=== PATIENT | male | born 1945 | race Caucasian/White ===

== ENCOUNTER 2017-03-27 15:47 | Inpatient (IN) | payer OTHER ==
[2017-03-27] MEDS ORDERED: XYLOCAINE 1 % (PLAIN) ONE (15:55)
[2017-03-27] MEDS ORDERED: STERILE WATER IRRIGATION IR ONE (15:55)
[2017-03-27 15:59] VITALS: BMI 23.4
[2017-03-27 16:42] LABS: BASOPHILS # (AUTO) 0.1 X10^3/uL (0.0-0.1); BASOPHILS % (AUTO) 0.7 % (0.2-1.0); EOSINOPHILS # (AUTO) 0.1 x10^3/uL (0.0-0.2); EOSINOPHILS % (AUTO) 1.1 % (0.9-2.9); HEMATOCRIT 55.7 % (42.0-54.0); HEMOGLOBIN 18.8 g/dL (13.5-18.0); LYMPHOCYTES # (AUTO) 3.3 X10^3/uL (1.3-2.9); LYMPHOCYTES % (AUTO) 28.2 % (21.0-51.0); MEAN CORPUSCULAR HEMOGLOBIN 31.9 pg (27.0-34.0); MEAN CORPUSCULAR HGB CONC 33.6 g/dL (33.0-35.0); MEAN CORPUSCULAR VOLUME 94.8 fL (80.0-100.0); MONOCYTES # (AUTO) 0.8 x10^3/uL (0.3-0.8); NEUTROPHILS # (AUTO) 7.4 x10^3/uL (2.2-4.8); PLATELET COUNT 222 X10^3/uL (150.0-450.0); RED BLOOD COUNT 5.88 X10^6/uL (4.7-6.0); RED CELL DISTRIBUTION WIDTH 13.4 % (11.6-16.5); WHITE BLOOD COUNT 11.8 X10^3/uL (3.6-10.0)
[2017-03-27] MEDS ORDERED: DILAUDID INJ ONE (16:44)
[2017-03-27] MEDS ORDERED: ZOFRAN INJ 4 MG VIAL ONE (16:44)
[2017-03-27] MEDS ORDERED: ZOFRAN INJ 4 MG VIAL IVP ONE (16:44)
[2017-03-27] MEDS ORDERED: DILAUDID INJ IVP ONE (16:45)
--- NOTE | 2017-03-27 16:51 | DR.SOBA ---
HPI - Time Seen Time seen: 16:00 - Primary Care Physician Primary Care Physician: MADELYN LEYVA - HPI Comment HPI Comment: PATIENT WITH 60%PNEUMOTHORAX HERE FOR CHEST TUBE PLACEMENT. PATIENT HAVE INCREASING SOB. NO FEVER. CURRENTLY ON LEVAQUIN FOR RESOLVING PNEUMONIA. - Complaints Chief Complaint Doctors Comments: SOB. Chief Complaint:: MADELYN MONROE, CALLS STATING PT. HAD BEEN SICK FOR ABOUT 1 WEEK AND SHE HAD BEEN TREATING PATIENT AN OUTPATIENT FOR PNEUMONIA AND BRONCHITIS AND HE WASN'T RESPONDING TO TREATMENT. PT. HAD AN OUT-PATIENT CHEST X -RAY DONE TODAY WHICH SHOWED A 60% RIGHT SIDED PNEUMOTHROAX. PT. WAS INSTRUCTED TO COME TO THE ER. UPON ARRIVAL TO ER, PT. IS SHORT OF BREATH UPON REST WITH LABORED RR AND ACCESSORY MUSCLE USE. - Reviewed Nurses Notes Reviewed: Yes - Source History Provided: Patient, Other - Mode of Arrival Mode of Arrival: Ambulatory - Timing Onset of Chief Complaint: 03/20/17 - Duration Duration: Days - Context Onset:: At Rest, With Light Exertion PE Risk Factors:: None History of:: None Currently on:: Neither Prehospital Care:: None - Modifying Factors Worsens:: Nothing - Associated Signs and Symptoms Associated Signs and Symptoms: Cough. denies: Fever, Wheeze, Nasal Congestion - If Chest Pain Quality: Sharp, Stabbing Location: Substernal, Chest Wall - If Cough Cough: Nonproductive PMH - PMH Past Medical History: No Past Surgical History: No Surgical History: No History - Family History History of Family Medical Conditions: No - Social History Does patient currently use any type of tobacco product: Yes Have you used tobacco products in the last 12 months: Yes Type of Tobacco Use: Cigarettes Does any household member use tobacco: No Alcohol Use: None Do you use any recreational Drugs:: No Lives With: Family Lives Where: Home - infectious screening In the last 2 months have you had wt loss of >10#?: NO Have you had fever, night sweats or hemotysis?: No Have you traveled outside the country in the last 6 months?: No Isolation: Standard ROS - Review of Systems Constitutional: No Symptoms Reported Eyes: No Symptoms Reported ENTM: No Symptoms Reported Respiratoy: Non-Productive Cough, Short of Breath, Wheezing Cardiovascular: Chest Pain Gastrointestinal/Abdominal: No Symptoms Reported Genitourinary: No Symptoms Reported Neurological: No Symptoms Reported Musculoskeletal: Muscle Pain Integumentary: No Symptoms Reported Hematologic/Lymphatic: No Symptoms Reported Endocrine: No Symptoms Reported All Other Systems: Reviewed and Negative PE - Vital Signs Vitals: Temperature 98.2 F Pulse Rate [Apical] 82 Pulse Rate 103 Respiratory Rate 35 Blood Pressure [Left Arm] 140/84 Blood Pressure 160/94 O2 Sat by Pulse Oximetry 94 - General Limitations: No Limitations General Appearance: Alert - Head Head Exam: Normal Inspection - Eyes Eye exam: Normal Appearance - ENT ENT Exam: Normal External Ear Exam - Neck Neck Exam: Trachea Midline. negative: Tenderness, Meningismus, Lymphadenopathy - Chest Chest Inspection: Symmetric Chest Wall Rise - Respiratory Respiratory Exam: Normal Lung Sounds Bilat Respiratory Exam: Bilateral Clear to Auscultation - Cardiovascular Cardiovascular Exam: Systolic Murmur - Abdominal Exam Abdominal Exam: Normal Bowel Sounds, Soft. negative: Tenderness - Extremities Extremities Exam: Normal Inspection. negative: Edema - Back Back Exam: Normal Inspection - Neurologic Neurological Exam: Alert, Oriented X3, CN II-XII Intact, Motor Sensory Deficit - Psychiatric Psychiatric Exam: Anxious - Skin Skin Exam: Normal Color MDM - Additional Information Obtained Additional Information Obtained From: Family - Differential Diagnosis Differential Diagnosis: Bronchitis, Pneumothorax, Other (RESPIRATORY DISTRESS,) Course - Treatment Treatment: CHEST TUBE PLACE IN ED BY DR. WEINER THE SURGEON. - Education/Counseling Education/Counseling: Patient, Family, Education Educated On: Treatment, Diagnosis ROR - Labs Reviewed Laboratory Results Reviewed?: Yes Result Diagrams: 03/27/17 16:18 03/27/17 16:18 Laboratory: WBC 11.8 X10^3/uL (3.6-10.0) H 03/27/17 16:18 RBC 5.88 X10^6/uL (4.7-6.0) 03/27/17 16:18 Hgb 18.8 g/dL (13.5-18.0) H 03/27/17 16:18 Hct 55.7 % (42.0-54.0) H 03/27/17 16:18 MCV 94.8 fL (80.0-100.0) 03/27/17 16:18 MCH 31.9 pg (27.0-34.0) 03/27/17 16:18 MCHC 33.6 g/dL (33.0-35.0) 03/27/17 16:18 RDW 13.4 % (11.6-16.5) 03/27/17 16:18 Plt Count 222 X10^3/uL (150.0-450.0) 03/27/17 16:18 MPV 8.0 fL (7.4-11.0) 03/27/17 16:18 Neut % 63.0 % (42.0-75.0) 03/27/17 16:18 Lymph % 28.2 % (21.0-51.0) 03/27/17 16:18 [place] % 7.0 % (0.0-13.0) 03/27/17 16:18 Eos % 1.1 % (0.9-2.9) 03/27/17 16:18 Baso % 0.7 % (0.2-1.0) 03/27/17 16:18 Neut # 7.4 x10^3/uL (2.2-4.8) H 03/27/17 16:18 Lymph # 3.3 X10^3/uL (1.3-2.9) H 03/27/17 16:18 [place] # 0.8 x10^3/uL (0.3-0.8) 03/27/17 16:18 Eos # 0.1 x10^3/uL (0.0-0.2) 03/27/17 16:18 Baso # 0.1 X10^3/uL (0.0-0.1) 03/27/17 16:18 Absolute Nucleated RBC 0.0 /100WBC 03/27/17 16:18 INR Target Range - 03/27/17 16:18 INR 1.08 (0.8-1.3) 03/27/17 16:18 PTT 33.3 SECONDS (22.9-36.5) 03/27/17 16:18 PTT Comment - 03/27/17 16:18 Sodium 138 mmol/L (136-145) 03/27/17 16:18 Corrected Sodium 140 mmol/L (136-145) 03/27/17 16:18 Potassium 4.6 mmol/L (3.5-5.1) 03/27/17 16:18 Chloride 103 mmol/L (98-107) 03/27/17 16:18 Carbon Dioxide 29.3 mmol/L (21-32) 03/27/17 16:18 BUN 19 mg/dL (7-18) H 03/27/17 16:18 Creatinine 1.64 mg/dL (0.70-1.30) H 03/27/17 16:18 Est GFR (MDRD) Af Amer 54 (>60) L 03/27/17 16:18 Est GFR (MDRD) Non-Af 44 (>60) L 03/27/17 16:18 Glucose 181 mg/dL (65-99) H 03/27/17 16:18 Lactic Acid 2.6 mmol/L (0.4-2.0) H 03/27/17 16:18 Calcium 9.2 mg/dL (8.5-10.1) 03/27/17 16:18 Corrected Calcium 9.8 mg/dL (8.5-10.1) 03/27/17 16:18 Total Bilirubin 0.50 mg/dL (0.2-1.0) 03/27/17 16:18 AST 17 Units/L (15-37) 03/27/17 16:18 ALT 17 Units/L (12-78) 03/27/17 16:18 Alkaline Phosphatase 77 Units/L (46-116) 03/27/17 16:18 Creatine Kinase 49 Units/L (39-308) 03/27/17 16:18 CK-MB (CK-2) 3.2 ng/mL (0-4.0) 03/27/17 16:18 CK/CKMB % Calc 6.5 % (<4) 03/27/17 16:18 Troponin I < 0.02 ng/mL (0-1.5) 03/27/17 16:18 Total Protein 8.1 g/dL (6.4-8.2) 03/27/17 16:18 Albumin 3.3 g/dL (3.4-5.0) L 03/27/17 16:18 Globulin 4.8 g/dL (2.5-4.5) H 03/27/17 16:18 Albumin/Globulin Ratio 0.7 Ratio (1.1-2.1) L 03/27/17 16:18 - XRAY XRAY Interpreted by: Radiologist XRAY Findings: REPORT NOTRD AND DISCUSS WITH PATIENT AND FAMILY. - EKG Rhythm: NSR (EKG NOTED.) - Diagnosis Discharge Problem: Respiratory distress Pneumothorax Qualifiers: Pneumothorax type: spontaneous, tension Qualified Code(s): J93.0 - Spontaneous tension pneumothorax Pneumonia Qualifiers: Pneumonia type: due to unspecified organism Laterality: bilateral Lung location : lower lobe of lung Qualified Code(s): J18.9 - Pneumonia, unspecified organism - Discharge Plan Disposition: ADMITTED INPATIENT Condition: Stable - Follow ups/Referrals - Instructions
[2017-03-27 16:57] LABS: LACTIC ACID 2.6 mmol/L (0.4-2.0)
[2017-03-27 16:58] LABS: BLOOD UREA NITROGEN 19 mg/dL (7-18); CALCIUM 9.2 mg/dL (8.5-10.1); CARBON DIOXIDE 29.3 mmol/L (21-32); CHLORIDE 103 mmol/L (98-107); COR NA(FOR HYPERGLY) 140 mmol/L (136-145); CREATININE 1.64 mg/dL (0.70-1.30); SODIUM 138 mmol/L (136-145); TROPONIN I < 0.02 ng/mL (0-1.5); eGFR BLACK RACES 54 (>60); eGFR NON BLACK RACES 44 (>60)
--- NOTE | 2017-03-27 17:01 | RAD ---
HISTORY: 71-year-old male status post chest tube placement Study: Frontal view of the chest. Comparison: Chest radiographs this date Findings: Interval placement large bore right chest thoracostomy catheter with apparent complete resolution of right-sided pneumothorax. The remainder the examination is unchanged. IMPRESSION: 1. Interval placement large-bore right thoracostomy catheter with apparent resolution of pneumothora x. Reported By:
[2017-03-27 17:03] LABS: ALANINE AMINOTRANSFERASE 17 Units/L (12-78); ALBUMIN 3.3 g/dL (3.4-5.0); ALKALINE PHOSPHATASE 77 Units/L (46-116); ASPARTATE AMINO TRANSFERASE 17 Units/L (15-37); CKMB % 6.5 % (<4); COR CA(FOR HYPOALB) 9.8 mg/dL (8.5-10.1); CREATINE KINASE 49 Units/L (39-308); CREATINE KINASE MB 3.2 ng/mL (0-4.0); TOTAL PROTEIN 8.1 g/dL (6.4-8.2)
[2017-03-27] MEDS ORDERED: DILAUDID INJ IVP PRN ×2 (18:04→18:19)
[2017-03-27] MEDS ORDERED: ZOFRAN INJ 4 MG VIAL IVP PRN (18:04)
[2017-03-27] MEDS ORDERED: ATIVAN TAB 1 MG PO SCH (19:00)
--- NOTE | 2017-03-27 19:32 | RAD ---
Is Examination: Portable AP chest History: Chest tube placement Comparison 4:56 p.m., March 27, 2017 Findings: Continued normal heart size with clear left lung. Right chest tube is present with the tip projected over the right hilum. There is increasing airspace disease in the right lower lung. A small right basal pneumothorax may be present, this is equivocal. No mediastinal deviation is noted. Impression: Stable appearance of right chest tube. Possible small right loculated subpulmonic pneumot horax. Increasing airspace disease, infiltrate or edema, right lower lung. Reported By:
--- NOTE | 2017-03-27 19:33 | RAD ---
Examination: Portable AP chest History: 3rd chest tube placement Comparison: 7:24 p.m., March 27, 2017 Findings: Normal heart size with clear left lung. Loculated right subpulmonic [place] pneumothorax. Ri ght chest tube present with the tip projected over the right hilum. Airspace disease in the right low er lung. Impression: As above. Reported By:
--- NOTE | 2017-03-27 19:35 | RAD ---
Examination: Portable AP chest History: 4th chest tube placement, 7:24 p.m., March 27, 2017 Findings: There is no definite change in position of the right chest tube as described. Suspect persi stent loculated right subpulmonic [place] pneumothorax. Persistent airspace disease right lower lung. Heart size normal with clear left lung. Impression: As above. Reported By:
[2017-03-27 21:08] LABS: ABG ALLEN TEST pos; ABG BASE EXCESS -2.3 mmol/L (-2.0-2.0); ABG HCO3 22.5 mmol/L (22-26)
[2017-03-27] MEDS: NS 1000 ML 1,000 ML IV SCH ×2 (21:10→23:15)
[2017-03-27] MEDS ORDERED: AMIDATE INJ 40 MG VIAL ONE (21:16)
[2017-03-27] MEDS ORDERED: VERSED ONE ×2 (21:17→21:18)
[2017-03-27] MEDS ORDERED: DIPRIVAN ONE (21:17)
[2017-03-27] MEDS ORDERED: DIPRIVAN PREMIX 1 GM IV 1,000 MG/100 ML VIAL IV PRN (21:35)
--- NOTE | 2017-03-27 21:44 | DR.UPDATE ---
H&P Update History and Physical Update: History and Physical reviewed and patient examined. Changes noted: NO Yes with the following:agree with H&P. will intubate patient for transport Procedures (ALL) - Intubation Time out performed: Yes Sedative: etomidate, versed Mg given: versed 2mg, etomidate 20mg paralytic: succinylchline (100mg) Laryngoscope: jericho (4) ET tube size: 8 Tube secured depth: 22 Tube secured location: lips Tube placement confirmation: visualized tube passing through cords, equal breath sounds bilaterally, no breath sounds over epigastrium, comfirmation by capnometer Patient tolerated procedure: Yes Intubation complications: none
[2017-03-27] MEDS ORDERED: NORCURON INJ 10 MG VIAL ONE (21:48)
--- NOTE | 2017-03-27 21:53 | RAD ---
Chest, one view Indication: Endotracheal tube placement Comparison: Chest radiograph from earlier today Findings: Tip of the endotracheal tube is well positioned, terminating approximately 3 cm above the c michelle. The heart size is normal. Right-sided chest tube and adjacent basilar opacities appear unchang ed. There is a persistent trace right apical pneumothorax. The left lung is clear. Mild subcutaneous emphysema within the right lateral chest wall again noted. Impression: Satisfactory endotracheal tube placement. Otherwise, stable chest exam. Reported By:
[2017-03-27] MEDS ORDERED: NEO-SYNEPHRINE INJ ONE (22:00)
[2017-03-27 22:21] LABS: ABG BASE EXCESS -2.3 mmol/L (-2.0-2.0); ABG HCO3 25.3 mmol/L (22-26)
[2017-03-27 22:22] LABS: ABG ALLEN TEST POS
[2017-03-27 22:40] LABS: BILIRUBIN,URINE NEGATIVE (NEGATIVE); BLOOD/HEMOGLOBIN,URINE 2+ (NEGATIVE); GLUCOSE, URINE NEGATIVE (NEGATIVE); KETONES,URINE NEGATIVE (NEGATIVE); LEUKOCYTE ESTERASE ,URINE 1+ (NEGATIVE); NITRITES,URINE NEGATIVE (NEGATIVE); PROTEIN,URINE 2+ (NEGATIVE); UROBILINOGEN,URINE NORMAL (NORMAL)
[2017-03-27 22:48] LABS: APPEARANCE,URINE CLEAR (CLEAR); COLOR,URINE YELLOW (YELLOW)
[2017-03-27 22:49] LABS: BACTERIA,URINE NEGATIVE /HPF (NEGATIVE); SQUAMOUS EPITHELIAL CELL,UR RARE /HPF (NEGATIVE)
[2017-03-27] MEDS ORDERED: DIPRIVAN PREMIX 1 GM IV 1,000 MG/100 ML VIAL ONE (23:36)
[2017-03-28 01:29] VITALS: BP 134/72
[2017-03-28] MEDS ORDERED: DIPRIVAN PREMIX 1 GM IV 1,000 MG/100 ML VIAL IV PRN ×2 (04:30→04:33)
[2017-03-28] MEDS ORDERED: LEVAQUIN PREMIX IV 500 MG 500 MG/100 ML BAG IV SCH (09:00)
== END 2017-03-27 23:55 | disposition short-term general hospital (02) | DRG 199 ==
LOC: ER 15:50 → ICU 17:34
PROVIDERS: ADMIT Internal Medicine; ATTEND Internal Medicine
PROC: 0W9900Z Drainage of Right Pleural Cavity with Drainage Device, Open Approach (ICD-10-PCS; principal; 2017-03-27)
PROC: 0BH17EZ Insertion of Endotracheal Airway into Trachea, Via Natural or Artificial Opening (ICD-10-PCS; 2017-03-27)
PROC: 5A1935Z Respiratory Ventilation, Less than 24 Consecutive Hours (ICD-10-PCS; 2017-03-27)
DX: J93.83 Other pneumothorax (principal); R06.02 Shortness of breath; R06.03 Acute respiratory distress; J18.8 Other pneumonia, unspecified organism; R94.31 Abnormal electrocardiogram [ECG] [EKG]; R07.89 Other chest pain
CPT/HCPCS: 36415; 36600; 71045; 71046; 80053; 81001; 82550; 82553; 82803; 83605; 84484; 85025; 85610; 85730; 87040; 93005; 93010; 96365; 96374; 96375; 99284; 99285; A4217; A4222; J1170; J2001; J2250; J2370; J2405; J3490

== ENCOUNTER → 2017-03-27 | Outpatient (CLI) | payer OTHER ==
--- NOTE | 2017-03-27 13:45 | RAD ---
Examination: Chest, PA and lateral views History: Cough and SOB with pneumonia Findings: There is a large right pneumothorax estimated at 60%. Mild tension effect is suggested. Flu id level is present. The heart is not enlarged and the left lung is clear. Impression: Large right hydro- pneumothorax with suspect mild tension effect. Reported By:
== END ==
LOC: RAD 13:21
PROVIDERS: ATTEND Nurse Practitioner Family
DX: J18.9 Pneumonia, unspecified organism (principal); J44.9 Chronic obstructive pulmonary disease, unspecified; J94.8 Other specified pleural conditions
CPT/HCPCS: 71046

== ENCOUNTER 2017-04-10 14:22 | Inpatient (IN) | payer OTHER ==
--- NOTE | 2017-04-10 14:55 | RAD ---
HISTORY: Chest tube placement Study: Chest AP portable Comparison: 03/27/2017 Findings: There is a right-sided PICC line in good position. There is a right-sided chest tube present. There i s a new small bore pigtail chest catheter in the right upper tim thorax. No definite pneumothorax is identified. The heart is within normal limits in size. The raghav are normal. The lungs are free of ac radha infiltrates. No pleural effusions are identified. The bony thorax is unremarkable. IMPRESSION: No definite residual right pneumothorax The lungs clear Reported By:
[2017-04-10 15:18] LABS: BASOPHILS # (AUTO) 0.1 X10^3/uL (0.0-0.1); BASOPHILS % (AUTO) 0.8 % (0.2-1.0); EOSINOPHILS # (AUTO) 0.3 x10^3/uL (0.0-0.2); EOSINOPHILS % (AUTO) 2.9 % (0.9-2.9); HEMATOCRIT 50.1 % (42.0-54.0); LYMPHOCYTES # (AUTO) 3.6 X10^3/uL (1.3-2.9); LYMPHOCYTES % (AUTO) 36.1 % (21.0-51.0); MEAN CORPUSCULAR HEMOGLOBIN 32.1 pg (27.0-34.0); MEAN CORPUSCULAR VOLUME 94.4 fL (80.0-100.0); MEAN PLATELET VOLUME 7.9 fL (7.4-11.0); MONOCYTES # (AUTO) 0.7 x10^3/uL (0.3-0.8); MONOCYTES % (AUTO) 6.9 % (0.0-13.0); NEUTROPHILS # (AUTO) 5.3 x10^3/uL (2.2-4.8); NEUTROPHILS % (AUTO) 53.3 % (42.0-75.0); PLATELET COUNT 220 X10^3/uL (150.0-450.0); RED CELL DISTRIBUTION WIDTH 13.3 % (11.6-16.5)
[2017-04-10 15:19] LABS: ALANINE AMINOTRANSFERASE 32 Units/L (12-78); ALBUMIN 2.9 g/dL (3.4-5.0); ALKALINE PHOSPHATASE 66 Units/L (46-116); ASPARTATE AMINO TRANSFERASE 25 Units/L (15-37); BLOOD UREA NITROGEN 28 mg/dL (7-18); CALCIUM 9.2 mg/dL (8.5-10.1); CARBON DIOXIDE 26.7 mmol/L (21-32); CHLORIDE 104 mmol/L (98-107); COR CA(FOR HYPOALB) 10.1 mg/dL (8.5-10.1); CREATININE 1.14 mg/dL (0.70-1.30); SODIUM 138 mmol/L (136-145); TOTAL PROTEIN 7.7 g/dL (6.4-8.2); eGFR BLACK RACES > 60 (>60); eGFR NON BLACK RACES > 60 (>60)
[2017-04-10 15:24] VITALS: BMI 23.8
--- NOTE | 2017-04-11 05:43 | RAD ---
Examination: Portable AP chest History: Pneumothorax Comparison 04/10/2017 Findings: There is no change in appearance of heart or lungs. Tubes and catheters are stable and unch anged. No definite pneumothorax identified. Impression: No change since 1 day earlier. Reported By:
[2017-04-11 05:45] LABS: BASOPHILS # (AUTO) 0.1 X10^3/uL (0.0-0.1); BASOPHILS % (AUTO) 0.8 % (0.2-1.0); EOSINOPHILS # (AUTO) 0.4 x10^3/uL (0.0-0.2); EOSINOPHILS % (AUTO) 4.6 % (0.9-2.9); HEMATOCRIT 48.7 % (42.0-54.0); HEMOGLOBIN 16.5 g/dL (13.5-18.0); LYMPHOCYTES % (AUTO) 36.7 % (21.0-51.0); MEAN CORPUSCULAR HEMOGLOBIN 31.7 pg (27.0-34.0); MEAN CORPUSCULAR HGB CONC 33.8 g/dL (33.0-35.0); MEAN CORPUSCULAR VOLUME 93.8 fL (80.0-100.0); MEAN PLATELET VOLUME 7.6 fL (7.4-11.0); MONOCYTES # (AUTO) 0.8 x10^3/uL (0.3-0.8); NEUTROPHILS # (AUTO) 3.9 x10^3/uL (2.2-4.8); NEUTROPHILS % (AUTO) 47.9 % (42.0-75.0); PLATELET COUNT 313 X10^3/uL (150.0-450.0); RED BLOOD COUNT 5.19 X10^6/uL (4.7-6.0); RED CELL DISTRIBUTION WIDTH 13.4 % (11.6-16.5); WHITE BLOOD COUNT 8.1 X10^3/uL (3.6-10.0)
[2017-04-11 06:00] LABS: ALANINE AMINOTRANSFERASE 28 Units/L (12-78); ALBUMIN 2.6 g/dL (3.4-5.0); ALKALINE PHOSPHATASE 58 Units/L (46-116); ASPARTATE AMINO TRANSFERASE 18 Units/L (15-37); BLOOD UREA NITROGEN 25 mg/dL (7-18); CALCIUM 9.2 mg/dL (8.5-10.1); CARBON DIOXIDE 29.3 mmol/L (21-32); CHLORIDE 106 mmol/L (98-107); COR CA(FOR HYPOALB) 10.3 mg/dL (8.5-10.1); CREATININE 1.09 mg/dL (0.70-1.30); SODIUM 141 mmol/L (136-145); TOTAL PROTEIN 7.2 g/dL (6.4-8.2); eGFR BLACK RACES > 60 (>60); eGFR NON BLACK RACES > 60 (>60)
--- NOTE | 2017-04-11 09:35 | RAD ---
Examination: Portable AP chest History: Chest tube removal Comparison 04/11/2017 Findings: 1 of the right chest tubes has been removed. The remaining chest tube is unchanged in posit ion. There is no evidence for pneumothorax or other complication. Stable position of PICC. Heart size normal. No pleural fluid seen. Impression: Right chest tube removed with no new abnormality demonstrated. Reported By:
--- NOTE | 2017-04-11 10:12 | PCM.PROG ---
Progress Note - Progress Note for Day of Date: 04/11/17 - Subjective Subjective: pt is comfortable , no SOB . no CP. chest xray showed expanded Rt lung . anterior chest tube was removed without residual pneumothorax.. - Past Medical Family Social History Past Med/Fam/Surg Hx: No changes since H&P Allergies: Allergies No Known Drug Allergies Allergy (Verified 03/27/17 15:48) - Review of Systems ROS: No change since H&P - Vital Signs and I&O's Vital Signs: Temperature 97.8 F Pulse Rate [Left Brachial] 51 Respiratory Rate 13 Blood Pressure [Left Arm] 140/72 Blood Pressure 134/72 O2 Sat by Pulse Oximetry 95 Intake and Output: Intake & Output 04/08/17 04/09/17 04/10/17 04/11/17 11:59 11:59 11:59 11:59 Intake Total 227 Output Total 700 Balance -473 - Physical Exam Oriented: Normal Eyes: Normal Ear: Normal Nose: Normal Throat: Normal Respiratory: Normal, Right, Left ( few scattered rhonchi Rt side) Cardiovascular: Normal Speech Pattern: Clear, Appropriate - Laboratory and Diagnostics Result Diagrams: 04/11/17 05:25 04/11/17 05:25 Labs: Laboratory WBC 8.1 X10^3/uL (3.6-10.0) 04/11/17 05:25 RBC 5.19 X10^6/uL (4.7-6.0) 04/11/17 05:25 Hgb 16.5 g/dL (13.5-18.0) 04/11/17 05:25 Hct 48.7 % (42.0-54.0) 04/11/17 05:25 MCV 93.8 fL (80.0-100.0) 04/11/17 05:25 MCH 31.7 pg (27.0-34.0) 04/11/17 05:25 MCHC 33.8 g/dL (33.0-35.0) 04/11/17 05:25 RDW 13.4 % (11.6-16.5) 04/11/17 05:25 Plt Count 313 X10^3/uL (150.0-450.0) 04/11/17 05:25 MPV 7.6 fL (7.4-11.0) 04/11/17 05:25 Neut % 47.9 % (42.0-75.0) 04/11/17 05:25 Lymph % 36.7 % (21.0-51.0) 04/11/17 05:25 [place] % 10.0 % (0.0-13.0) 04/11/17 05:25 Eos % 4.6 % (0.9-2.9) H 04/11/17 05:25 Baso % 0.8 % (0.2-1.0) 04/11/17 05:25 Neut # 3.9 x10^3/uL (2.2-4.8) 04/11/17 05:25 Lymph # 3.0 X10^3/uL (1.3-2.9) H 04/11/17 05:25 [place] # 0.8 x10^3/uL (0.3-0.8) 04/11/17 05:25 Eos # 0.4 x10^3/uL (0.0-0.2) H 04/11/17 05:25 Baso # 0.1 X10^3/uL (0.0-0.1) 04/11/17 05:25 Absolute Nucleated RBC 0.1 /100WBC 04/11/17 05:25 Sodium 141 mmol/L (136-145) 04/11/17 05:25 Corrected Sodium TNP 04/11/17 05:25 Potassium 4.5 mmol/L (3.5-5.1) 04/11/17 05:25 Chloride 106 mmol/L (98-107) 04/11/17 05:25 Carbon Dioxide 29.3 mmol/L (21-32) 04/11/17 05:25 BUN 25 mg/dL (7-18) H 04/11/17 05:25 Creatinine 1.09 mg/dL (0.70-1.30) 04/11/17 05:25 Est GFR (MDRD) Af Amer > 60 (>60) 04/11/17 05:25 Est GFR (MDRD) Non-Af > 60 (>60) 04/11/17 05:25 Glucose 88 mg/dL (65-99) 04/11/17 05:25 POC Glucose (mg/dL) 103 mg/dL (65-99) H 04/10/17 21:40 Calcium 9.2 mg/dL (8.5-10.1) 04/11/17 05:25 Corrected Calcium 10.3 mg/dL (8.5-10.1) H 04/11/17 05:25 Total Bilirubin 0.30 mg/dL (0.2-1.0) 04/11/17 05:25 AST 18 Units/L (15-37) 04/11/17 05:25 ALT 28 Units/L (12-78) 04/11/17 05:25 Alkaline Phosphatase 58 Units/L (46-116) 04/11/17 05:25 Total Protein 7.2 g/dL (6.4-8.2) 04/11/17 05:25 Albumin 2.6 g/dL (3.4-5.0) L 04/11/17 05:25 Globulin 4.6 g/dL (2.5-4.5) H 04/11/17 05:25 Albumin/Globulin Ratio 0.6 Ratio (1.1-2.1) L 04/11/17 05:25 - Plan (1) Spontaneous pneumothorax Status: Acute Plan: anterior chest tube was removed.. will clamp the other one in am and if on recurrent leak will remove it
[2017-04-11] MEDS ORDERED: ZOFRAN INJ 4 MG VIAL IVP PRN (10:22)
[2017-04-11] MEDS ORDERED: MORPHINE SULFATE INJ 2 MG INJ IVP PRN (10:23)
[2017-04-11] MEDS ORDERED: NS 1/2 1000 ML IV 1,000 ML IV ONE (11:29)
--- NOTE | 2017-04-11 11:29 | DR.H&P ---
H&P - History & Physical for Day of: H&P Date: 04/10/17 - Chief Complaint Chief Complaint: mild sob - Allergies Allergies/Adverse Reactions: Allergies Allergy/AdvReac Type Severity Reaction Status Date / Time No Known Drug Allergies Allergy Verified 03/27/17 15:48 - History of Present Illness History of Present Illness: 71 WM [facility] FROM [facility] FOLLOW COMPLICATED PNEUMOTHORAX WITH PNEUMONIA. PT HAS IMPROVED PNEUMONIA AND BILATERAL CHEST TUBES. PT HAS PMH OF TOBACCO ABUSE NOT OTHER CHRONIC MEDICAL CONDITIONS. PLAN TO CONSULTDR [facility] FOR MANAGEMENT OF CHEST TUBE, ADMISSION LABS, CXR. RESP CARE, PAIN AND NAUSEA CONTROL - Past Medical History Past Medical History: COPD - Past Surgical History Surgical History: Other - Social History Does patient currently use any type of tobacco product: No Have you used tobacco products in the last 12 months: Yes Type of Tobacco Use: Cigarettes How many years tobacco product used: 35 Alcohol Use: None Drug Use: None - Medications Home Medications: No Known Home Medications 0 tab PO DAILY 04/10/17 [History Confirmed 04/10/17] - Review of Systems Constitutional: Weakness Eyes: No Symptoms Reported ENT: No Symptoms Reported Respiratory: Shortness of Breath Cardiovascular: No Symptoms Reported Gastrointestinal: No Symptoms Reported Genitourinary: No Symptoms Reported Musculoskeletal: No Symptoms Reported Skin: No Symptoms Reported Neurological: No Symptoms Reported - Physical Exam Vital Signs: Temperature 97.7 F Pulse Rate [Left Brachial] 61 Pulse Rate 67 Respiratory Rate 19 Blood Pressure [Left Arm] 108/57 Blood Pressure 134/72 O2 Sat by Pulse Oximetry 96 Oriented: Normal Eyes: Normal Ear: Normal Nose: Normal Throat: Normal Respiratory: RLL Diminished, LLL Diminished Cardiovascular: Normal : Normal Auscultation: Bowel Sounds: Normal Tenderness: Normal Skin: Normal Musculoskeletal: Normal Mood Description: Calm Speech Pattern: Appropriate - Assessment/Plan (1) Pneumothorax Qualifiers: Pneumothorax type: spontaneous, tension Qualified Code(s): J93.0 - Spontaneous tension pneumothorax Status: Acute Plan: RESP CARE, CHEST TUBE MANAGEMENT. PAIN CONTROL, CARDIAC AND BP MONITORING. SUPPLEMENTAL O2 (2) COPD (chronic obstructive pulmonary disease) Status: Acute (3) Pneumonia Qualifiers: Pneumonia type: due to unspecified organism Laterality: bilateral Lung location: lower lobe of lung Qualified Code(s): J18.9 - Pneumonia, unspecified organism Status: Acute
[2017-04-11] MEDS: NS 1/2 1000 ML IV 1,000 ML IV SCH (11:41)
[2017-04-11] MEDS: PEPCID 20 MG IV PREMIX* 20 MG/50 ML BAG IV SCH (11:42)
[2017-04-12 05:23] LABS: BASOPHILS # (AUTO) 0.1 X10^3/uL (0.0-0.1); BASOPHILS % (AUTO) 0.7 % (0.2-1.0); EOSINOPHILS # (AUTO) 0.5 x10^3/uL (0.0-0.2); EOSINOPHILS % (AUTO) 4.8 % (0.9-2.9); HEMATOCRIT 47.4 % (42.0-54.0); HEMOGLOBIN 16.1 g/dL (13.5-18.0); LYMPHOCYTES # (AUTO) 3.4 X10^3/uL (1.3-2.9); LYMPHOCYTES % (AUTO) 34.1 % (21.0-51.0); MEAN CORPUSCULAR HEMOGLOBIN 31.8 pg (27.0-34.0); MEAN CORPUSCULAR HGB CONC 33.9 g/dL (33.0-35.0); MEAN CORPUSCULAR VOLUME 93.8 fL (80.0-100.0); MEAN PLATELET VOLUME 7.7 fL (7.4-11.0); MONOCYTES # (AUTO) 0.9 x10^3/uL (0.3-0.8); MONOCYTES % (AUTO) 9.2 % (0.0-13.0); NEUTROPHILS # (AUTO) 5.1 x10^3/uL (2.2-4.8); NEUTROPHILS % (AUTO) 51.2 % (42.0-75.0); PLATELET COUNT 301 X10^3/uL (150.0-450.0); RED BLOOD COUNT 5.05 X10^6/uL (4.7-6.0); RED CELL DISTRIBUTION WIDTH 13.4 % (11.6-16.5); WHITE BLOOD COUNT 10.1 X10^3/uL (3.6-10.0)
[2017-04-12 05:43] LABS: ALANINE AMINOTRANSFERASE 27 Units/L (12-78); ALBUMIN 2.5 g/dL (3.4-5.0); ALKALINE PHOSPHATASE 55 Units/L (46-116); ASPARTATE AMINO TRANSFERASE 17 Units/L (15-37); BLOOD UREA NITROGEN 24 mg/dL (7-18); CALCIUM 8.9 mg/dL (8.5-10.1); CARBON DIOXIDE 24.9 mmol/L (21-32); CHLORIDE 108 mmol/L (98-107); COR CA(FOR HYPOALB) 10.1 mg/dL (8.5-10.1); CREATININE 1.23 mg/dL (0.70-1.30); SODIUM 141 mmol/L (136-145); TOTAL PROTEIN 6.8 g/dL (6.4-8.2); eGFR BLACK RACES > 60 (>60); eGFR NON BLACK RACES > 60 (>60)
--- NOTE | 2017-04-12 08:32 | RAD ---
Examination: Portable AP chest History: Chest tube Comparison reference 04/11/2017 Findings: A single right chest tube remains in stable position. There is no evidence for developing p leural fluid or pneumothorax. There is no change in appearance of heart or lungs since prior study. S table position of PICC. Impression: No change in appearance of the chest since 1 day earlier. Reported By:
[2017-04-12] MEDS: PEPCID 20 MG IV PREMIX* 20 MG/50 ML BAG IV SCH (08:51)
--- NOTE | 2017-04-12 09:56 | PCM.PROG ---
Progress Note - Progress Note for Day of Date: 04/12/17 - Subjective Subjective: pt is comfortable , no SOB . no CP. chest xray showed expanded Rt lung . - Past Medical Family Social History Past Med/Fam/Surg Hx: No changes since H&P Allergies: Allergies No Known Drug Allergies Allergy (Verified 03/27/17 15:48) - Review of Systems ROS: No change since H&P - Vital Signs and I&O's Vital Signs: Temperature 97.7 F Pulse Rate [Left Brachial] 60 Pulse Rate 67 Respiratory Rate 23 Blood Pressure [Left Arm] 112/64 Blood Pressure 134/72 O2 Sat by Pulse Oximetry 94 Intake and Output: Intake & Output 04/09/17 04/10/17 04/11/17 04/12/17 11:59 11:59 11:59 11:59 Intake Total 227 861 Output Total 700 700 Balance -473 161 - Physical Exam Oriented: Normal Eyes: Normal Ear: Normal Nose: Normal Throat: Normal Respiratory: Normal, Right, Left ( few scattered rhonchi Rt side) Cardiovascular: Normal : Normal Auscultation: Bowel Sounds: Normal Tenderness: Normal Skin: Normal Musculoskeletal: Normal Mood Description: Calm Speech Pattern: Clear, Appropriate - Laboratory and Diagnostics Result Diagrams: 04/12/17 05:00 04/12/17 05:00 Labs: Laboratory WBC 10.1 X10^3/uL (3.6-10.0) H 04/12/17 05:00 RBC 5.05 X10^6/uL (4.7-6.0) 04/12/17 05:00 Hgb 16.1 g/dL (13.5-18.0) 04/12/17 05:00 Hct 47.4 % (42.0-54.0) 04/12/17 05:00 MCV 93.8 fL (80.0-100.0) 04/12/17 05:00 MCH 31.8 pg (27.0-34.0) 04/12/17 05:00 MCHC 33.9 g/dL (33.0-35.0) 04/12/17 05:00 RDW 13.4 % (11.6-16.5) 04/12/17 05:00 Plt Count 301 X10^3/uL (150.0-450.0) 04/12/17 05:00 MPV 7.7 fL (7.4-11.0) 04/12/17 05:00 Neut % 51.2 % (42.0-75.0) 04/12/17 05:00 Lymph % 34.1 % (21.0-51.0) 04/12/17 05:00 [place] % 9.2 % (0.0-13.0) 04/12/17 05:00 Eos % 4.8 % (0.9-2.9) H 04/12/17 05:00 Baso % 0.7 % (0.2-1.0) 04/12/17 05:00 Neut # 5.1 x10^3/uL (2.2-4.8) H 04/12/17 05:00 Lymph # 3.4 X10^3/uL (1.3-2.9) H 04/12/17 05:00 [place] # 0.9 x10^3/uL (0.3-0.8) H 04/12/17 05:00 Eos # 0.5 x10^3/uL (0.0-0.2) H 04/12/17 05:00 Baso # 0.1 X10^3/uL (0.0-0.1) 04/12/17 05:00 Absolute Nucleated RBC 0.6 /100WBC 04/12/17 05:00 Sodium 141 mmol/L (136-145) 04/12/17 05:00 Corrected Sodium TNP 04/12/17 05:00 Potassium 4.4 mmol/L (3.5-5.1) 04/12/17 05:00 Chloride 108 mmol/L (98-107) H 04/12/17 05:00 Carbon Dioxide 24.9 mmol/L (21-32) 04/12/17 05:00 BUN 24 mg/dL (7-18) H 04/12/17 05:00 Creatinine 1.23 mg/dL (0.70-1.30) 04/12/17 05:00 Est GFR (MDRD) Af Amer > 60 (>60) 04/12/17 05:00 Est GFR (MDRD) Non-Af > 60 (>60) 04/12/17 05:00 Glucose 89 mg/dL (65-99) 04/12/17 05:00 POC Glucose (mg/dL) 103 mg/dL (65-99) H 04/10/17 21:40 Calcium 8.9 mg/dL (8.5-10.1) 04/12/17 05:00 Corrected Calcium 10.1 mg/dL (8.5-10.1) 04/12/17 05:00 Total Bilirubin 0.20 mg/dL (0.2-1.0) 04/12/17 05:00 AST 17 Units/L (15-37) 04/12/17 05:00 ALT 27 Units/L (12-78) 04/12/17 05:00 Alkaline Phosphatase 55 Units/L (46-116) 04/12/17 05:00 Total Protein 6.8 g/dL (6.4-8.2) 04/12/17 05:00 Albumin 2.5 g/dL (3.4-5.0) L 04/12/17 05:00 Globulin 4.3 g/dL (2.5-4.5) 04/12/17 05:00 Albumin/Globulin Ratio 0.6 Ratio (1.1-2.1) L 04/12/17 05:00 - Plan (1) Spontaneous pneumothorax Status: Acute Plan: will clamp the chest T and repeat chest xray this afternoon. if no recurrent pneumothorax will remove the chest tube ..
[2017-04-12] MEDS: NS 1/2 1000 ML IV 1,000 ML IV SCH (11:16)
[2017-04-12 11:19] LABS: FREE T4 (FREE THYROXINE) 1.04 ng/dL (0.76-1.46); TSH (3RD GENERATION) 1.393 uIU/mL (0.358-3.74)
--- NOTE | 2017-04-12 16:50 | RAD ---
HISTORY: Follow-up chest tube removal Study: Single-view of the chest Comparison: Chest radiographs performed earlier today also on April 12, 2017 Findings: Images demonstrate a moderate sized right basilar pneumothorax extending cranially to near the level of the aortic arch. The pneumothorax measures approximately 6.3 cm across its greatest dimension at t he right lung base. A right-sided chest tube is again demonstrated. A right-sided PICC line is again noted as well. IMPRESSION: Interval development of a moderate-sized right pneumothorax as noted above. Findings were discussed w jeremy Foote at 4:50 p.m. on April 12, 2017. Reported By:
--- NOTE | 2017-04-12 19:27 | RAD ---
HISTORY: Pneumothorax Study: Single-view of the chest Comparison: Chest radiographs performed earlier today also on April 12, 2017 Findings: There has been significant interval improvement of the previously noted right-sided pneumothorax. A t iny right basilar pneumothorax remains. Recommend clinical correlation and continued follow-up is ind icated for further evaluation. The apices are not entirely included. Right-sided chest tube placement is again demonstrated with the tip and side port projecting lateral to the right hilum. A right-side d PICC line is again noted with the tip projecting over the SVC. IMPRESSION: Significant interval improvement of the previously noted right-sided pneumothorax as noted above. Reported By:
[2017-04-13 05:31] LABS: BASOPHILS # (AUTO) 0.1 X10^3/uL (0.0-0.1); BASOPHILS % (AUTO) 0.6 % (0.2-1.0); EOSINOPHILS # (AUTO) 0.5 x10^3/uL (0.0-0.2); EOSINOPHILS % (AUTO) 4.7 % (0.9-2.9); HEMATOCRIT 47.3 % (42.0-54.0); HEMOGLOBIN 15.8 g/dL (13.5-18.0); LYMPHOCYTES # (AUTO) 3.3 X10^3/uL (1.3-2.9); LYMPHOCYTES % (AUTO) 30.1 % (21.0-51.0); MEAN CORPUSCULAR HEMOGLOBIN 31.5 pg (27.0-34.0); MEAN CORPUSCULAR HGB CONC 33.4 g/dL (33.0-35.0); MEAN CORPUSCULAR VOLUME 94.3 fL (80.0-100.0); MEAN PLATELET VOLUME 7.8 fL (7.4-11.0); MONOCYTES # (AUTO) 1.2 x10^3/uL (0.3-0.8); MONOCYTES % (AUTO) 11.3 % (0.0-13.0); NEUTROPHILS # (AUTO) 5.8 x10^3/uL (2.2-4.8); NEUTROPHILS % (AUTO) 53.3 % (42.0-75.0); PLATELET COUNT 279 X10^3/uL (150.0-450.0); RED BLOOD COUNT 5.01 X10^6/uL (4.7-6.0); RED CELL DISTRIBUTION WIDTH 13.1 % (11.6-16.5); WHITE BLOOD COUNT 10.9 X10^3/uL (3.6-10.0)
[2017-04-13 05:47] LABS: ALANINE AMINOTRANSFERASE 21 Units/L (12-78); ALBUMIN 2.4 g/dL (3.4-5.0); ALKALINE PHOSPHATASE 56 Units/L (46-116); ASPARTATE AMINO TRANSFERASE 16 Units/L (15-37); BLOOD UREA NITROGEN 25 mg/dL (7-18); CALCIUM 8.6 mg/dL (8.5-10.1); CARBON DIOXIDE 26.5 mmol/L (21-32); CHLORIDE 106 mmol/L (98-107); CHOL/HDL RATIO 5.9 (0.0-5.0); CHOLESTEROL 170 mg/dL (0-200); COR CA(FOR HYPOALB) 9.9 mg/dL (8.5-10.1); CREATININE 1.24 mg/dL (0.70-1.30); HDL CHOLESTEROL 29 mg/dL (40-60); SODIUM 140 mmol/L (136-145); TOTAL PROTEIN 6.5 g/dL (6.4-8.2); TRIGLYCERIDES 74 mg/dL (0-150); eGFR BLACK RACES > 60 (>60); eGFR NON BLACK RACES > 60 (>60)
[2017-04-13 05:49] LABS: TOTAL PSA 2.15 ng/mL (0.13-4.0)
[2017-04-13] MEDS ORDERED: NS 500 ML IV 500 ML IV ONE (06:04)
[2017-04-13] MEDS ORDERED: NS 100 ML IV 100 ML IV ONE (06:07)
--- NOTE | 2017-04-13 08:06 | CT ---
HISTORY: Pneumothorax Study: CT chest with contrast Comparison: Chest x-ray 04/12/2017 Technique: Axial post-contrast images with coronal and sagittal reformats. Dose reduction procedures were used with mA/kv adjusted for body size. Findings: Examination of the mediastinum demonstrated no evidence for mediastinal masses, enlarged mediastinal adenopathy, or enlarged hilar adenopathy. No pleural effusions are identified. Subcutaneous emphysema is present along the right chest wall. There is a right chest tube in place. No other chest wall or axillary abnormality is identified. Those portions of the upper abdominal organs visualized were with in normal limits. Examination of the lung quiñones demonstrate a moderately large right pneumothorax pr esent most prominently visualized in the lung apex, anteriorly, laterally and in the medial lung base . Abnormal parenchymal density is identified in the right lung apex extending to the pleura. This cou ld represent pleuro parenchymal scarring or neoplasm. PET-CT may be indicated when the pneumothorax h as resolved. Multiple bilateral apical blebs and bulla are identified. No other parenchymal nodules, masses, alveolar infiltrates, areas of consolidation, peribronchial thickening or bronchiectasis is i dentified. IMPRESSION: Residual moderately large pneumothorax more prominent than is visible on plain chest x-ray despite th e presence of a right chest tube. Biapical blebs and bullae Abnormal parenchymal density in the right lung apex extending to the pleura this could represent pleu ro parenchymal scarring or neoplasm. PET-CT may eventually be required for further evaluation. Subcutaneous emphysema right chest wall Reported By:
[2017-04-13] MEDS: PEPCID 20 MG IV PREMIX* 20 MG/50 ML BAG IV SCH (08:23)
[2017-04-13] MEDS ORDERED: STERILE WATER IRRIGATION IR ONE (09:25)
--- NOTE | 2017-04-13 10:34 | RAD ---
History: Follow up chest tube, comparison 04/12/2017 Study: Portable chest Findings: Portable AP erect chest labeled 10:25 a.m. shows the right chest tube to be unchanged in ap pearance. No right pneumothorax is seen. The right PICC is again noted. The left lung is clear Impression: No pneumothorax is identified. The right chest tube remains in place. Reported By:
[2017-04-13] MEDS: LEVAQUIN PREMIX IV 500 MG 500 MG/100 ML BAG IV SCH (11:15)
[2017-04-13] MEDS: NS 1/2 1000 ML IV 1,000 ML IV SCH (11:15)
[2017-04-13] MEDS ORDERED: LIBRIUM PO PRN (18:18)
[2017-04-13] MEDS ORDERED: NS 1/2 1000 ML IV 1,000 ML IV ONE (19:40)
[2017-04-14 05:27] LABS: BASOPHILS # (AUTO) 0.1 X10^3/uL (0.0-0.1); BASOPHILS % (AUTO) 0.6 % (0.2-1.0); EOSINOPHILS # (AUTO) 0.5 x10^3/uL (0.0-0.2); EOSINOPHILS % (AUTO) 4.6 % (0.9-2.9); HEMATOCRIT 47.2 % (42.0-54.0); HEMOGLOBIN 15.7 g/dL (13.5-18.0); LYMPHOCYTES # (AUTO) 2.9 X10^3/uL (1.3-2.9); LYMPHOCYTES % (AUTO) 29.9 % (21.0-51.0); MEAN CORPUSCULAR HEMOGLOBIN 31.3 pg (27.0-34.0); MEAN CORPUSCULAR HGB CONC 33.3 g/dL (33.0-35.0); MEAN CORPUSCULAR VOLUME 94.2 fL (80.0-100.0); MONOCYTES # (AUTO) 1.1 x10^3/uL (0.3-0.8); MONOCYTES % (AUTO) 11.6 % (0.0-13.0); NEUTROPHILS # (AUTO) 5.2 x10^3/uL (2.2-4.8); NEUTROPHILS % (AUTO) 53.3 % (42.0-75.0); PLATELET COUNT 266 X10^3/uL (150.0-450.0); RED BLOOD COUNT 5.01 X10^6/uL (4.7-6.0); RED CELL DISTRIBUTION WIDTH 13.3 % (11.6-16.5); WHITE BLOOD COUNT 9.8 X10^3/uL (3.6-10.0)
--- NOTE | 2017-04-14 05:50 | RAD ---
Examination: AP chest History: Pneumothorax and chest tube Findings: Stable heart size and essentially clear left chest. No change in position of right chest tu be. No pneumothorax seen. Impression: No interval change. Reported By:
[2017-04-14 05:52] LABS: ALANINE AMINOTRANSFERASE 19 Units/L (12-78); ALBUMIN 2.4 g/dL (3.4-5.0); ALKALINE PHOSPHATASE 58 Units/L (46-116); ASPARTATE AMINO TRANSFERASE 15 Units/L (15-37); BLOOD UREA NITROGEN 21 mg/dL (7-18); CALCIUM 8.8 mg/dL (8.5-10.1); CARBON DIOXIDE 27.3 mmol/L (21-32); CHLORIDE 106 mmol/L (98-107); COR CA(FOR HYPOALB) 10.1 mg/dL (8.5-10.1); CREATININE 1.23 mg/dL (0.70-1.30); SODIUM 140 mmol/L (136-145); TOTAL PROTEIN 6.6 g/dL (6.4-8.2); eGFR BLACK RACES > 60 (>60); eGFR NON BLACK RACES > 60 (>60)
[2017-04-14] MEDS: PEPCID 20 MG IV PREMIX* 20 MG/50 ML BAG IV SCH (08:20)
[2017-04-14] MEDS: LEVAQUIN PREMIX IV 500 MG 500 MG/100 ML BAG IV SCH (09:30)
--- NOTE | 2017-04-14 10:02 | PCM.PROG ---
Progress Note - Progress Note for Day of Date: 04/14/17 - Subjective Subjective: attemted clamping the chest tube was not successful with recurred pneumothorax , but the Pt was not in any distress or SOB. pt is comfortable , no SOB . no CP. chest xray showed expanded Rt lung . chest tube drainage canister was changed and functioning well . - Past Medical Family Social History Past Med/Fam/Surg Hx: No changes since H&P Allergies: Allergies No Known Drug Allergies Allergy (Verified 03/27/17 15:48) - Review of Systems ROS: No change since H&P - Vital Signs and I&O's Vital Signs: Temperature 98 F Pulse Rate [Left Brachial] 63 Pulse Rate 67 Respiratory Rate 21 Blood Pressure [Left Arm] 135/64 Blood Pressure 134/72 O2 Sat by Pulse Oximetry 97 Intake and Output: Intake & Output 04/11/17 04/12/17 04/13/17 04/14/17 11:59 11:59 11:59 11:59 Intake Total 505 097 6614 1380 Output Total 374 118 6845 1700 Balance -473 161 386 -320 - Physical Exam Oriented: Normal Eyes: Normal Ear: Normal Nose: Normal Throat: Normal Respiratory: Normal, Right, Left ( few scattered rhonchi Rt side) Cardiovascular: Normal : Normal Auscultation: Bowel Sounds: Normal Tenderness: Normal Skin: Normal Musculoskeletal: Normal Mood Description: Calm Speech Pattern: Clear, Appropriate - Laboratory and Diagnostics Result Diagrams: 04/14/17 04:30 04/14/17 04:30 Labs: Laboratory WBC 9.8 X10^3/uL (3.6-10.0) 04/14/17 04:30 RBC 5.01 X10^6/uL (4.7-6.0) 04/14/17 04:30 Hgb 15.7 g/dL (13.5-18.0) 04/14/17 04:30 Hct 47.2 % (42.0-54.0) 04/14/17 04:30 MCV 94.2 fL (80.0-100.0) 04/14/17 04:30 MCH 31.3 pg (27.0-34.0) 04/14/17 04:30 MCHC 33.3 g/dL (33.0-35.0) 04/14/17 04:30 RDW 13.3 % (11.6-16.5) 04/14/17 04:30 Plt Count 266 X10^3/uL (150.0-450.0) 04/14/17 04:30 MPV 8.0 fL (7.4-11.0) 04/14/17 04:30 Neut % 53.3 % (42.0-75.0) 04/14/17 04:30 Lymph % 29.9 % (21.0-51.0) 04/14/17 04:30 [place] % 11.6 % (0.0-13.0) 04/14/17 04:30 Eos % 4.6 % (0.9-2.9) H 04/14/17 04:30 Baso % 0.6 % (0.2-1.0) 04/14/17 04:30 Neut # 5.2 x10^3/uL (2.2-4.8) H 04/14/17 04:30 Lymph # 2.9 X10^3/uL (1.3-2.9) 04/14/17 04:30 [place] # 1.1 x10^3/uL (0.3-0.8) H 04/14/17 04:30 Eos # 0.5 x10^3/uL (0.0-0.2) H 04/14/17 04:30 Baso # 0.1 X10^3/uL (0.0-0.1) 04/14/17 04:30 Absolute Nucleated RBC 0.1 /100WBC 04/14/17 04:30 Sodium 140 mmol/L (136-145) 04/14/17 04:30 Corrected Sodium TNP 04/14/17 04:30 Potassium 4.2 mmol/L (3.5-5.1) 04/14/17 04:30 Chloride 106 mmol/L (98-107) 04/14/17 04:30 Carbon Dioxide 27.3 mmol/L (21-32) 04/14/17 04:30 BUN 21 mg/dL (7-18) H 04/14/17 04:30 Creatinine 1.23 mg/dL (0.70-1.30) 04/14/17 04:30 Est GFR (MDRD) Af Amer > 60 (>60) 04/14/17 04:30 Est GFR (MDRD) Non-Af > 60 (>60) 04/14/17 04:30 Glucose 92 mg/dL (65-99) 04/14/17 04:30 POC Glucose (mg/dL) 103 mg/dL (65-99) H 04/10/17 21:40 Calcium 8.8 mg/dL (8.5-10.1) 04/14/17 04:30 Corrected Calcium 10.1 mg/dL (8.5-10.1) 04/14/17 04:30 Total Bilirubin 0.30 mg/dL (0.2-1.0) 04/14/17 04:30 AST 15 Units/L (15-37) 04/14/17 04:30 ALT 19 Units/L (12-78) 04/14/17 04:30 Alkaline Phosphatase 58 Units/L (46-116) 04/14/17 04:30 Total Protein 6.6 g/dL (6.4-8.2) 04/14/17 04:30 Albumin 2.4 g/dL (3.4-5.0) L 04/14/17 04:30 Globulin 4.2 g/dL (2.5-4.5) 04/14/17 04:30 Albumin/Globulin Ratio 0.6 Ratio (1.1-2.1) L 04/14/17 04:30 Triglycerides 74 mg/dL (0-150) 04/13/17 04:45 Cholesterol 170 mg/dL (0-200) 04/13/17 04:45 LDL Cholesterol, Calc 126 mg/dL (0-100) H 04/13/17 04:45 HDL Cholesterol 29 mg/dL (40-60) L 04/13/17 04:45 Cholesterol/HDL Ratio 5.9 (0.0-5.0) H 04/13/17 04:45 Total PSA 2.15 ng/mL (0.13-4.0) 04/13/17 04:45 Free T4 1.04 ng/dL (0.76-1.46) 04/12/17 05:00 TSH 3rd Generation 1.393 uIU/mL (0.358-3.74) 04/12/17 05:00 - Plan (1) Spontaneous pneumothorax Status: Acute Plan: will try again to clamp the chest T and repeat chest xray tomorrow. if no recurrent pneumothorax will remove the chest tube ,orherwise pt needs surgery .
[2017-04-14] MEDS: NS 1/2 1000 ML IV 1,000 ML IV SCH (11:29)
[2017-04-15 05:27] LABS: BASOPHILS # (AUTO) 0.1 X10^3/uL (0.0-0.1); BASOPHILS % (AUTO) 0.6 % (0.2-1.0); EOSINOPHILS # (AUTO) 0.4 x10^3/uL (0.0-0.2); LYMPHOCYTES # (AUTO) 2.7 X10^3/uL (1.3-2.9); LYMPHOCYTES % (AUTO) 29.4 % (21.0-51.0); MEAN CORPUSCULAR HEMOGLOBIN 31.8 pg (27.0-34.0); MEAN CORPUSCULAR HGB CONC 34.1 g/dL (33.0-35.0); MEAN CORPUSCULAR VOLUME 93.3 fL (80.0-100.0); MEAN PLATELET VOLUME 7.8 fL (7.4-11.0); MONOCYTES # (AUTO) 1.1 x10^3/uL (0.3-0.8); MONOCYTES % (AUTO) 12.4 % (0.0-13.0); NEUTROPHILS # (AUTO) 4.9 x10^3/uL (2.2-4.8); NEUTROPHILS % (AUTO) 53.6 % (42.0-75.0); PLATELET COUNT 202 X10^3/uL (150.0-450.0); RED BLOOD COUNT 5.04 X10^6/uL (4.7-6.0); RED CELL DISTRIBUTION WIDTH 13.2 % (11.6-16.5); WHITE BLOOD COUNT 9.1 X10^3/uL (3.6-10.0)
[2017-04-15 05:40] LABS: ALANINE AMINOTRANSFERASE 17 Units/L (12-78); ALBUMIN 2.4 g/dL (3.4-5.0); ALKALINE PHOSPHATASE 62 Units/L (46-116); ASPARTATE AMINO TRANSFERASE 16 Units/L (15-37); BLOOD UREA NITROGEN 20 mg/dL (7-18); CALCIUM 8.8 mg/dL (8.5-10.1); CARBON DIOXIDE 26.6 mmol/L (21-32); CHLORIDE 105 mmol/L (98-107); COR CA(FOR HYPOALB) 10.1 mg/dL (8.5-10.1); CREATININE 1.15 mg/dL (0.70-1.30); SODIUM 139 mmol/L (136-145); TOTAL PROTEIN 6.8 g/dL (6.4-8.2); eGFR BLACK RACES > 60 (>60); eGFR NON BLACK RACES > 60 (>60)
[2017-04-15] MEDS: PEPCID 20 MG IV PREMIX* 20 MG/50 ML BAG IV SCH (08:38)
[2017-04-15] MEDS: LEVAQUIN PREMIX IV 500 MG 500 MG/100 ML BAG IV SCH (08:38)
[2017-04-15 10:06] VITALS: BP 129/70
--- NOTE | 2017-04-15 10:35 | RAD ---
History: Follow-up chest tube Study: Portable AP chest Comparison: Yesterday Findings: There is no change. There is a right chest tube unchanged in configuration. There is a righ t-sided PICC line unchanged. No definite pneumothorax is discerned on the right. The left lung is harmony ar and the heart size is normal. Impression: Satisfactory chest and unchanged right chest tube Reported By:
[2017-04-15] MEDS: NS 1/2 1000 ML IV 1,000 ML IV SCH (11:02)
== END 2017-04-15 11:00 | disposition short-term general hospital (02) | DRG 201 ==
LOC: UNDOADMIN 14:22 → ICU 14:22
PROVIDERS: ADMIT Internal Medicine; ATTEND Internal Medicine
PROC: 2W54XYZ Removal of Other Device on Chest Wall (ICD-10-PCS; principal; 2017-04-11)
DX: J93.0 Spontaneous tension pneumothorax (principal); R07.89 Other chest pain; J44.9 Chronic obstructive pulmonary disease, unspecified; I10 Essential (primary) hypertension; R06.02 Shortness of breath; Z97.8 Presence of other specified devices; Z87.01 Personal history of pneumonia (recurrent)
CPT/HCPCS: 36415; 71045; 71260; 80053; 80061; 84153; 84439; 84443; 85025; A4217; A4222; S0028; J1956